=== PATIENT | male | born 1965 | race African-American/Black ===

== ENCOUNTER 2017-07-28 09:34 | Emergency (ER) | payer SELFPAY ==
[~2017-07-28] VITALS: Ht 180.3 cm; Wt 100.0 kg
[2017-07-28] MEDS ORDERED: LASIX 40MG TABL40 MG PO (09:53)
[2017-07-28] MEDS ORDERED: ALDACTONE50 MG PO (09:54)
[2017-07-28] MEDS ORDERED: ALTACE 2.5MG T2.5 MG PO (09:54)
[2017-07-28 10:30] LABS: COLLECTION METHOD CLEAN CATCH
[2017-07-28 10:35] LABS: BASO % 0.3 % (0.0-2.0); EOS # 0.1 (0.0-0.7); EOS % 0.5 % (0-4.0); GRAN # 6.7 (1.4-6.5); GRAN % 69.3 % (42.2-75.2); HEMOGLOBIN 12.1 g/dl (13.5-18.0); LYMPH % 20.7 % (20.0-51.0); MEAN CELL VOLUME 89 fl (80.0-100.0); MEAN CORPUSCULAR HEMOGLOBIN 29 pg (27.0-31.0); MEAN CORPUSCULAR HGB CONC 33 g/dl (33.0-37.0); MONO # 0.9 (0.1-0.6); MONO % 8.8 % (1.7-9.3); PLATELET COUNT 225 K/mm3 (130-400); RED BLOOD COUNT 4.18 M/mm3 (4.20-5.60)
[2017-07-28 10:47] LABS: MUCOUS Present /lpf; PH 5 (5-8); SQUAMOUS EPITHELIAL 0-2 /hpf; URINE APPEARANCE Hazy; URINE BACTERIA None Seen /hpf; URINE BILIRUBIN Negative (NEGATIVE); URINE BLOOD Negative (NEGATIVE); URINE COLOR Yellow; URINE GLUCOSE Negative (NEGATIVE); URINE KETONE Trace (NEGATIVE); URINE LEUKOCYTE ESTERASE Negative (NEGATIVE); URINE NITRATE Negative (NEGATIVE); URINE PROTEIN(semi-quant) Negative (NEGATIVE)
[2017-07-28 10:47] LABS: ALBUMIN 4.2 gm/dL (3.5-5.0); BILIRUBIN,TOTAL 0.6 mg/dL (0.0-1.0); C-REACTIVE PROTEIN 1.7 mg/dL (0.0-0.9); CALCIUM 8.9 mg/dL (8.4-10.2); CREATININE, serum 1.04 mg/dL (0.66-1.25); POTASSIUM 3.7 mmol/L (3.4-5.0); TOTAL PROTEIN 8.1 gm/dL (6.4-8.2)
[2017-07-28 11:04] LABS: TROPONIN-I 0.052 ng/mL (0.000-0.034)
[2017-07-28 11:10] LABS: ERYTHROCYTE SEDIMENTATION RATE 13 mm/hr (0-30)
[2017-07-28 11:18] LABS: INR 1.2 (0.8-3.0); PROTHROMBIN TIME 13.5 SECONDS (9.7-12.8)
[2017-07-28 11:21] LABS: PARTIAL THROMBOPLASTIN TIME 33.2 SECONDS (26.0-37.0)
[2017-07-28] MEDS ORDERED: TOPROL XL 25MG25 MG PO (13:11)
[2017-07-28] MEDS ORDERED: PLAVIX 75MG TAB75 MG PO (13:11)
[2017-07-28 14:16] VITALS: BP 133/99; PULSE 114; TEMP 98
[2017-07-28] MEDS ORDERED: 00186-0370-20 IH (17:00)
[2017-07-28] MEDS ORDERED: [UNRECOGNIZED DRUG - OTHER] PO (17:01)
== END 2017-07-28 13:15 | disposition home or self-care (01) ==
LOC: COL.ER 09:34
PROVIDERS: Emergency Medicine
DX: M54.6 Pain in thoracic spine (principal); F17.210 Nicotine dependence, cigarettes, uncomplicated; R79.89 Other specified abnormal findings of blood chemistry; I10 Essential (primary) hypertension

== ENCOUNTER 2017-07-28 15:25 | Inpatient (IN) | payer OTHER ==
[~2017-07-28] VITALS: Ht 180.3 cm; Wt 99.5 kg
[~2017-07-28 15:25] MED LIST: ALDACTONE50 MG PO; ALTACE 2.5MG T2.5 MG PO; LASIX 40MG TABL40 MG PO; PLAVIX 75MG TAB75 MG PO; TOPROL XL 25MG25 MG PO
[2017-07-28 15:59] LABS: BASO % 0.4 % (0.0-2.0); EOS # 0.1 (0.0-0.7); GRAN # 6.9 (1.4-6.5); GRAN % 62.7 % (42.2-75.2); LYMPH # 2.7 (1.2-3.4); LYMPH % 24.2 % (20.0-51.0); MEAN CELL VOLUME 88 fl (80.0-100.0); MEAN CORPUSCULAR HEMOGLOBIN 29 pg (27.0-31.0); MEAN CORPUSCULAR HGB CONC 33 g/dl (33.0-37.0); MEAN PLATELET VOLUME 9.9 fl (7.4-10.4); MONO # 1.2 (0.1-0.6); MONO % 11.3 % (1.7-9.3); PLATELET COUNT 235 K/mm3 (130-400); RED BLOOD COUNT 4.14 M/mm3 (4.20-5.60)
[2017-07-28 16:08] LABS: HEMATOCRIT 36.5 % (42.0-52.0)
[2017-07-28 16:42] LABS: COLLECTION METHOD CLEAN CATCH
[2017-07-28 16:48] LABS: MUCOUS Present /lpf; PH 5 (5-8); URINE APPEARANCE Clear; URINE BACTERIA None Seen /hpf; URINE BILIRUBIN Negative (NEGATIVE); URINE BLOOD Negative (NEGATIVE); URINE COLOR Amber; URINE GLUCOSE Negative (NEGATIVE); URINE KETONE 1+ (NEGATIVE); URINE LEUKOCYTE ESTERASE Trace (NEGATIVE); URINE NITRATE Negative (NEGATIVE); URINE PROTEIN(semi-quant) 1+ (NEGATIVE); URINE RBC 20-50 /hpf
[2017-07-28] MEDS ORDERED: 00186-0370-20 IH (17:00)
[2017-07-28] MEDS ORDERED: [UNRECOGNIZED DRUG - OTHER] PO (17:01)
[2017-07-28 17:24] LABS: TRICYCLIC ANTIDEPRESS URINE NEGATIVE
[2017-07-28 18:11] VITALS: BP 111/76; PULSE 88; TEMP 98.3
[2017-07-28 19:37] VITALS: BP 111/72; PULSE 85; TEMP 98.8
[2017-07-29] VITALS (12 sets, daily range): BP systolic 113–141; BP diastolic 72–94; PULSE 81–109; TEMP 98.1–99.3
[2017-07-29 06:52] LABS: BASO % 0.4 % (0.0-2.0); EOS # 0.2 (0.0-0.7); EOS % 2.4 % (0-4.0); GRAN # 4.1 (1.4-6.5); GRAN % 57.8 % (42.2-75.2); LYMPH # 2.1 (1.2-3.4); LYMPH % 28.8 % (20.0-51.0); MEAN CELL VOLUME 88 fl (80.0-100.0); MEAN CORPUSCULAR HGB CONC 33 g/dl (33.0-37.0); MEAN PLATELET VOLUME 10.6 fl (7.4-10.4); MONO # 0.8 (0.1-0.6); MONO % 10.5 % (1.7-9.3); PLATELET COUNT 211 K/mm3 (130-400); RED BLOOD COUNT 3.85 M/mm3 (4.20-5.60); REDCELL DISTRIBUTION WIDTH-CV 15.1 % (11.5-14.5)
[2017-07-29 07:02] LABS: CALCIUM 8.5 mg/dL (8.4-10.2); CREATININE, serum 0.96 mg/dL (0.66-1.25); HEMOGLOBIN 11.2 g/dl (13.5-18.0); MEAN CORPUSCULAR HEMOGLOBIN 29 pg (27.0-31.0); POTASSIUM 3.8 mmol/L (3.4-5.0)
[2017-07-29 07:06] LABS: MAGNESIUM 2.1 mg/dL (1.6-2.3); PHOSPHOROUS 2.5 mg/dL (2.5-4.5)
[2017-07-29 07:23] LABS: TROPONIN-I 0.039 ng/mL (0.000-0.034)
[2017-07-30] VITALS (14 sets, daily range): BP systolic 108–136; BP diastolic 70–96; PULSE 57–96; TEMP 98–98.6
[2017-07-30 06:04] LABS: MEAN CELL VOLUME 88 fl (80.0-100.0); MEAN CORPUSCULAR HGB CONC 33 g/dl (33.0-37.0); MEAN PLATELET VOLUME 9.6 fl (7.4-10.4); PLATELET COUNT 220 K/mm3 (130-400); RED BLOOD COUNT 3.96 M/mm3 (4.20-5.60)
[2017-07-30 06:05] LABS: HEMATOCRIT 34.8 % (42.0-52.0); HEMOGLOBIN 11.6 g/dl (13.5-18.0); MEAN CORPUSCULAR HEMOGLOBIN 29 pg (27.0-31.0)
[2017-07-30 06:08] LABS: INR 1.1 (0.8-3.0); PROTHROMBIN TIME 12.9 SECONDS (9.7-12.8)
[2017-07-30 06:11] LABS: PARTIAL THROMBOPLASTIN TIME 32.3 SECONDS (26.0-37.0)
[2017-07-30 06:23] LABS: CALCIUM 8.4 mg/dL (8.4-10.2); CREATININE, serum 0.94 mg/dL (0.66-1.25); POTASSIUM 3.9 mmol/L (3.4-5.0)
[2017-07-30] MEDS ORDERED: TOPROL XL 25MG25 MG PO (15:40)
[2017-07-30] MEDS ORDERED: SEROQUEL 2525 MG/TAB PO (15:41)
== END 2017-07-30 16:26 | disposition home or self-care (01) | DRG 281 ==
LOC: COL.ER 15:25 → MEDICAL 16:41
PROVIDERS: Emergency Medicine; Internal Medicine; Nurse Practitioner
PROC: B2111ZZ Fluoroscopy of Multiple Coronary Arteries using Low Osmolar Contrast (ICD-10-PCS; principal; 2017-07-30)
DX: I42.8 Other cardiomyopathies (principal); I21.A1 Myocardial infarction type 2; I50.20 Unspecified systolic (congestive) heart failure; F17.210 Nicotine dependence, cigarettes, uncomplicated; D64.9 Anemia, unspecified; J44.9 Chronic obstructive pulmonary disease, unspecified; F40.01 Agoraphobia with panic disorder; R94.39 Abnormal result of other cardiovascular function study; F16.10 Hallucinogen abuse, uncomplicated; F12.10 Cannabis abuse, uncomplicated; F11.10 Opioid abuse, uncomplicated; Z23 Encounter for immunization; F41.9 Anxiety disorder, unspecified
CPT/HCPCS: 99232-AI; 99239; A9502; C1760; C1894; G0378; J1644; J2250; J2270; J2704; J2785; Q9967

== ENCOUNTER 2017-08-02 17:15 | Emergency (ER) | payer OTHER ==
[~2017-08-02 17:15] MED LIST changes: +00186-0370-20 IH; +SEROQUEL 2525 MG/TAB PO; +[UNRECOGNIZED DRUG - OTHER] PO
[2017-08-02 17:27] VITALS: TEMP 98.5
[2017-08-02] MEDS ORDERED: PLAVIX 75MG TAB75 MG PO (18:00)
[2017-08-02] MEDS ORDERED: KLONOPIN 0.5MG0.5 MG PO (18:13)
[2017-08-02 18:21] LABS: BASO % 0.4 % (0.0-2.0); EOS # 0.2 (0.0-0.7); EOS % 2.2 % (0-4.0); GRAN # 3.9 (1.4-6.5); GRAN % 49.9 % (42.2-75.2); LYMPH % 38.6 % (20.0-51.0); MEAN CELL VOLUME 90 fl (80.0-100.0); MEAN CORPUSCULAR HGB CONC 32 g/dl (33.0-37.0); MEAN PLATELET VOLUME 9.9 fl (7.4-10.4); MONO # 0.7 (0.1-0.6); MONO % 8.8 % (1.7-9.3); PLATELET COUNT 249 K/mm3 (130-400); RED BLOOD COUNT 4.07 M/mm3 (4.20-5.60); REDCELL DISTRIBUTION WIDTH-CV 15.5 % (11.5-14.5)
[2017-08-02 18:22] LABS: ALBUMIN 3.8 gm/dL (3.5-5.0); BILIRUBIN,TOTAL 0.2 mg/dL (0.0-1.0); CALCIUM 8.5 mg/dL (8.4-10.2); CREATININE, serum 0.91 mg/dL (0.66-1.25); HEMATOCRIT 36.6 % (42.0-52.0); HEMOGLOBIN 11.8 g/dl (13.5-18.0); MEAN CORPUSCULAR HEMOGLOBIN 29 pg (27.0-31.0); POTASSIUM 3.9 mmol/L (3.4-5.0); TOTAL PROTEIN 7.7 gm/dL (6.4-8.2)
[2017-08-02 19:15] VITALS: BP 102/76; PULSE 83
== END 2017-08-02 19:15 | disposition home or self-care (01) ==
LOC: COL.ER 17:15
PROVIDERS: Emergency Medicine
DX: I42.9 Cardiomyopathy, unspecified (principal); I10 Essential (primary) hypertension; Z98.890 Other specified postprocedural states; Z79.02 Long term (current) use of antithrombotics/antiplatelets

== ENCOUNTER 2017-08-16 13:16 | Emergency (ER) | payer OTHER ==
[~2017-08-16] VITALS: Ht 180.3 cm; Wt 81.8 kg
[~2017-08-16 13:16] MED LIST changes: +KLONOPIN 0.5MG0.5 MG PO
[2017-08-16 13:29] VITALS: TEMP 98.3
[2017-08-16 15:38] LABS: BASO % 0.3 % (0.0-2.0); EOS # 0.1 (0.0-0.7); EOS % 0.8 % (0-4.0); GRAN # 3.9 (1.4-6.5); GRAN % 54.3 % (42.2-75.2); HEMOGLOBIN 12.7 g/dl (13.5-18.0); LYMPH # 2.6 (1.2-3.4); LYMPH % 35.7 % (20.0-51.0); MEAN CELL VOLUME 88 fl (80.0-100.0); MEAN CORPUSCULAR HEMOGLOBIN 29 pg (27.0-31.0); MEAN CORPUSCULAR HGB CONC 33 g/dl (33.0-37.0); MEAN PLATELET VOLUME 9.7 fl (7.4-10.4); MONO # 0.6 (0.1-0.6); MONO % 8.6 % (1.7-9.3); PLATELET COUNT 219 K/mm3 (130-400); RED BLOOD COUNT 4.41 M/mm3 (4.20-5.60); REDCELL DISTRIBUTION WIDTH-CV 15.9 % (11.5-14.5)
[2017-08-16 15:49] LABS: BILIRUBIN,TOTAL 0.4 mg/dL (0.0-1.0); C-REACTIVE PROTEIN 1.4 mg/dL (0.0-0.9); CREATININE, serum 0.91 mg/dL (0.66-1.25); TOTAL PROTEIN 8.6 gm/dL (6.4-8.2)
[2017-08-16 15:53] LABS: COLLECTION METHOD CLEAN CATCH
[2017-08-16 15:57] LABS: TROPONIN-I 0.019 ng/mL (0.000-0.034)
[2017-08-16 16:04] LABS: MUCOUS Present /lpf; PH 5 (5-8); SQUAMOUS EPITHELIAL 0-2 /hpf; URINE APPEARANCE Cloudy; URINE BACTERIA None Seen /hpf; URINE BILIRUBIN Negative (NEGATIVE); URINE BLOOD Negative (NEGATIVE); URINE COLOR Amber; URINE GLUCOSE Negative (NEGATIVE); URINE KETONE 2+ (NEGATIVE); URINE LEUKOCYTE ESTERASE 1+ (NEGATIVE); URINE NITRATE Negative (NEGATIVE); URINE PROTEIN(semi-quant) 1+ (NEGATIVE)
[2017-08-16] MEDS ORDERED: ANTIVERT 25MG25 MG PO (17:05)
[2017-08-16] MEDS ORDERED: VALIUM 5MG T5 MG/TAB PO (17:05)
[2017-08-16] MEDS ORDERED: PRILOTC PO (17:05)
[2017-08-16] MEDS ORDERED: ZOFRAN 4MG T4 MG/TAB PO (17:05)
[2017-08-16] MEDS ORDERED: CEPHALEXIN500 M1 PO (17:15)
[2017-08-16 17:23] VITALS: BP 104/90; PULSE 90
[2017-08-17] MEDS ORDERED: ANTIVERT 25MG25 MG PO (14:09)
[2017-08-17] MEDS ORDERED: VALIUM 5MG T5 MG/TAB PO (14:09)
[2017-08-17] MEDS ORDERED: PRILOSEC 20MG20 MG PO (14:10)
[2017-08-17] MEDS ORDERED: ZOFRAN 4MG T4 MG/TAB PO (14:10)
[2017-08-17] MEDS ORDERED: PLAVIX 75MG TAB75 MG PO (14:11)
[2017-08-17] MEDS ORDERED: TOPROL XL 25MG25 MG PO (14:12)
[2017-08-17] MEDS ORDERED: SEROQUEL 2525 MG/TAB PO (14:12)
[2017-08-17] MEDS ORDERED: MIRALAX 255 GM255 GM PO (15:20)
[2017-08-17] MEDS ORDERED: STOOL SOFTENER100 M2 PO (15:20)
== END 2017-08-16 17:34 | disposition home or self-care (01) ==
LOC: COL.ER 13:16
PROVIDERS: Emergency Medicine
DX: H81.10 Benign paroxysmal vertigo, unspecified ear (principal); F41.9 Anxiety disorder, unspecified; R10.13 Epigastric pain; I50.9 Heart failure, unspecified; I10 Essential (primary) hypertension; F17.210 Nicotine dependence, cigarettes, uncomplicated; F12.90 Cannabis use, unspecified, uncomplicated; Z79.02 Long term (current) use of antithrombotics/antiplatelets
CPT/HCPCS: J2405

== ENCOUNTER 2017-08-17 14:03 | Emergency (ER) | payer OTHER ==
[~2017-08-17] VITALS: Ht 180.3 cm; Wt 81.8 kg
[~2017-08-17 14:03] MED LIST changes: +ANTIVERT 25MG25 MG PO; +CEPHALEXIN500 M1 PO; +PRILOTC PO; +VALIUM 5MG T5 MG/TAB PO; +ZOFRAN 4MG T4 MG/TAB PO
[2017-08-17] MEDS ORDERED: VALIUM 5MG T5 MG/TAB PO (14:09)
[2017-08-17] MEDS ORDERED: ANTIVERT 25MG25 MG PO (14:09)
[2017-08-17] MEDS ORDERED: PRILOSEC 20MG20 MG PO (14:10)
[2017-08-17] MEDS ORDERED: ZOFRAN 4MG T4 MG/TAB PO (14:10)
[2017-08-17] MEDS ORDERED: PLAVIX 75MG TAB75 MG PO (14:11)
[2017-08-17] MEDS ORDERED: TOPROL XL 25MG25 MG PO (14:12)
[2017-08-17] MEDS ORDERED: SEROQUEL 2525 MG/TAB PO (14:12)
[2017-08-17 14:13] VITALS: BP 132/77; TEMP 98.3
[2017-08-17] MEDS ORDERED: MIRALAX 255 GM255 GM PO (15:20)
[2017-08-17] MEDS ORDERED: STOOL SOFTENER100 M2 PO (15:20)
[2017-08-17 15:41] VITALS: PULSE 88
== END 2017-08-17 15:41 | disposition home or self-care (01) ==
LOC: COL.ER 14:03
DX: K59.00 Constipation, unspecified (principal); I10 Essential (primary) hypertension; I50.9 Heart failure, unspecified; F41.9 Anxiety disorder, unspecified; F17.210 Nicotine dependence, cigarettes, uncomplicated; F12.90 Cannabis use, unspecified, uncomplicated; Z79.02 Long term (current) use of antithrombotics/antiplatelets

== ENCOUNTER 2017-08-18 11:17 | Emergency (ER) | payer OTHER ==
[~2017-08-18] VITALS: Ht 180.3 cm; Wt 81.8 kg
[~2017-08-18 11:17] MED LIST changes: +MIRALAX 255 GM255 GM PO; +PRILOSEC 20MG20 MG PO; +STOOL SOFTENER100 M2 PO
[2017-08-18 11:26] VITALS: TEMP 98.7
[2017-08-18 12:07] LABS: BASO % 0.4 % (0.0-2.0); EOS # 0.1 (0.0-0.7); EOS % 1.6 % (0-4.0); GRAN # 2.8 (1.4-6.5); GRAN % 56.1 % (42.2-75.2); LYMPH # 1.7 (1.2-3.4); MEAN CELL VOLUME 89 fl (80.0-100.0); MEAN CORPUSCULAR HEMOGLOBIN 29 pg (27.0-31.0); MEAN CORPUSCULAR HGB CONC 33 g/dl (33.0-37.0); MEAN PLATELET VOLUME 9.1 fl (7.4-10.4); MONO # 0.4 (0.1-0.6); MONO % 7.7 % (1.7-9.3); PLATELET COUNT 198 K/mm3 (130-400); RED BLOOD COUNT 4.12 M/mm3 (4.20-5.60)
[2017-08-18 12:08] LABS: HEMATOCRIT 36.7 % (42.0-52.0)
[2017-08-18 12:21] LABS: ALBUMIN 3.9 gm/dL (3.5-5.0); BILIRUBIN,TOTAL 0.3 mg/dL (0.0-1.0); CALCIUM 8.8 mg/dL (8.4-10.2); CREATININE, serum 0.94 mg/dL (0.66-1.25); POTASSIUM 3.7 mmol/L (3.4-5.0); TOTAL PROTEIN 7.8 gm/dL (6.4-8.2)
[2017-08-18 12:32] LABS: TROPONIN-I 0.013 ng/mL (0.000-0.034)
[2017-08-18 12:57] VITALS: BP 120/83; PULSE 85
[2017-08-19] MEDS ORDERED: CEPHALEXIN500 M1 PO (16:12)
[2017-08-19] MEDS ORDERED: COLACE 100100 MG/CAP PO (16:12)
== END 2017-08-18 12:58 | disposition home or self-care (01) ==
LOC: COL.ER 11:17
PROVIDERS: Emergency Medicine
DX: F41.9 Anxiety disorder, unspecified (principal); R07.89 Other chest pain; I10 Essential (primary) hypertension; I42.8 Other cardiomyopathies; F17.210 Nicotine dependence, cigarettes, uncomplicated; Z98.890 Other specified postprocedural states; Z79.02 Long term (current) use of antithrombotics/antiplatelets

== ENCOUNTER 2017-08-19 14:58 | Emergency (ER) | payer OTHER ==
[~2017-08-19] VITALS: Ht 180.3 cm; Wt 81.8 kg
[2017-08-19] MEDS ORDERED: CEPHALEXIN500 M1 PO (16:12)
[2017-08-19] MEDS ORDERED: COLACE 100100 MG/CAP PO (16:12)
[2017-08-19 16:14] VITALS: TEMP 98.9
[2017-08-19 16:47] LABS: BASO % 0.3 % (0.0-2.0); EOS # 0.1 (0.0-0.7); EOS % 1.7 % (0-4.0); GRAN % 52.5 % (42.2-75.2); HEMOGLOBIN 12.7 g/dl (13.5-18.0); LYMPH # 2.7 (1.2-3.4); LYMPH % 35.3 % (20.0-51.0); MEAN CELL VOLUME 89 fl (80.0-100.0); MEAN CORPUSCULAR HEMOGLOBIN 29 pg (27.0-31.0); MEAN CORPUSCULAR HGB CONC 33 g/dl (33.0-37.0); MEAN PLATELET VOLUME 9.5 fl (7.4-10.4); MONO # 0.8 (0.1-0.6); MONO % 9.9 % (1.7-9.3); PLATELET COUNT 223 K/mm3 (130-400); REDCELL DISTRIBUTION WIDTH-CV 16.1 % (11.5-14.5)
[2017-08-19 16:56] LABS: ALBUMIN 4.1 gm/dL (3.5-5.0); BILIRUBIN,TOTAL 0.5 mg/dL (0.0-1.0); C-REACTIVE PROTEIN 1.2 mg/dL (0.0-0.9); CREATININE, serum 1.03 mg/dL (0.66-1.25); POTASSIUM 3.7 mmol/L (3.4-5.0); TOTAL PROTEIN 8.5 gm/dL (6.4-8.2)
[2017-08-19 16:57] LABS: INR 1.2 (0.8-3.0); PROTHROMBIN TIME 13.8 SECONDS (9.7-12.8)
[2017-08-19 17:05] LABS: TROPONIN-I 0.02 ng/mL (0.000-0.034)
[2017-08-19 17:45] VITALS: BP 133/79; PULSE 87
== END 2017-08-19 17:45 | disposition home or self-care (01) ==
LOC: COL.ER 14:58
PROVIDERS: Emergency Medicine
DX: F41.9 Anxiety disorder, unspecified (principal); R07.89 Other chest pain; I10 Essential (primary) hypertension; I42.9 Cardiomyopathy, unspecified; I25.2 Old myocardial infarction; F17.210 Nicotine dependence, cigarettes, uncomplicated; Z98.890 Other specified postprocedural states; Z79.02 Long term (current) use of antithrombotics/antiplatelets

== ENCOUNTER 2017-08-24 07:18 | Emergency (ER) | payer SELFPAY ==
[~2017-08-24] VITALS: Ht 180.3 cm; Wt 81.8 kg
[~2017-08-24 07:18] MED LIST changes: +COLACE 100100 MG/CAP PO
[2017-08-24 07:29] VITALS: BP 151/78; TEMP 98.9
[2017-08-24 07:56] LABS: BASO % 0.3 % (0.0-2.0); EOS # 0.1 (0.0-0.7); EOS % 2.2 % (0-4.0); GRAN # 3.3 (1.4-6.5); GRAN % 50.7 % (42.2-75.2); HEMATOCRIT 37.8 % (42.0-52.0); HEMOGLOBIN 12.4 g/dl (13.5-18.0); LYMPH # 2.4 (1.2-3.4); LYMPH % 37.1 % (20.0-51.0); MEAN CELL VOLUME 89 fl (80.0-100.0); MEAN CORPUSCULAR HEMOGLOBIN 29 pg (27.0-31.0); MEAN CORPUSCULAR HGB CONC 33 g/dl (33.0-37.0); MEAN PLATELET VOLUME 9.8 fl (7.4-10.4); MONO # 0.6 (0.1-0.6); MONO % 9.5 % (1.7-9.3); PLATELET COUNT 230 K/mm3 (130-400); RED BLOOD COUNT 4.27 M/mm3 (4.20-5.60); REDCELL DISTRIBUTION WIDTH-CV 16.1 % (11.5-14.5)
[2017-08-24 08:04] LABS: ALBUMIN 4.1 gm/dL (3.5-5.0); BILIRUBIN,TOTAL 0.3 mg/dL (0.0-1.0); CALCIUM 8.8 mg/dL (8.4-10.2); CREATININE, serum 1.05 mg/dL (0.66-1.25); POTASSIUM 3.7 mmol/L (3.4-5.0); TOTAL PROTEIN 8.3 gm/dL (6.4-8.2)
[2017-08-24 09:06] VITALS: PULSE 88
[2017-08-24] MEDS ORDERED: COLACE 100100 MG/CAP PO (17:31)
== END 2017-08-24 09:07 | disposition home or self-care (01) ==
LOC: COL.ER 07:18
PROVIDERS: Physician Assistant
DX: R19.7 Diarrhea, unspecified (principal); I10 Essential (primary) hypertension; F41.9 Anxiety disorder, unspecified; I42.9 Cardiomyopathy, unspecified; Z79.02 Long term (current) use of antithrombotics/antiplatelets; Z88.6 Allergy status to analgesic agent

== ENCOUNTER 2017-08-24 15:39 | Emergency (ER) | payer SELFPAY ==
[~2017-08-24] VITALS: Ht 152.4 cm; Wt 81.8 kg
[2017-08-24 15:50] VITALS: TEMP 98.4
[2017-08-24 17:19] LABS: BASO % 0.4 % (0.0-2.0); EOS # 0.1 (0.0-0.7); EOS % 1.5 % (0-4.0); GRAN # 3.9 (1.4-6.5); GRAN % 58.2 % (42.2-75.2); HEMATOCRIT 37.7 % (42.0-52.0); HEMOGLOBIN 12.4 g/dl (13.5-18.0); LYMPH # 2.2 (1.2-3.4); LYMPH % 31.7 % (20.0-51.0); MEAN CELL VOLUME 88 fl (80.0-100.0); MEAN CORPUSCULAR HEMOGLOBIN 29 pg (27.0-31.0); MEAN CORPUSCULAR HGB CONC 33 g/dl (33.0-37.0); MEAN PLATELET VOLUME 9.5 fl (7.4-10.4); MONO # 0.6 (0.1-0.6); MONO % 8.1 % (1.7-9.3); PLATELET COUNT 225 K/mm3 (130-400)
[2017-08-24] MEDS ORDERED: COLACE 100100 MG/CAP PO (17:31)
[2017-08-24 17:32] LABS: BILIRUBIN,TOTAL 0.4 mg/dL (0.0-1.0); C-REACTIVE PROTEIN 0.7 mg/dL (0.0-0.9); CALCIUM 9.1 mg/dL (8.4-10.2); CREATININE, serum 0.96 mg/dL (0.66-1.25); POTASSIUM 3.7 mmol/L (3.4-5.0); TOTAL PROTEIN 8.3 gm/dL (6.4-8.2)
[2017-08-24 18:50] VITALS: BP 151/90; PULSE 99
[2017-08-24 18:56] LABS: COLLECTION METHOD CLEAN CATCH
[2017-08-24 19:01] LABS: MUCOUS Present /lpf; PH 6 (5-8); URINE APPEARANCE Clear; URINE BACTERIA None Seen /hpf; URINE BILIRUBIN Negative (NEGATIVE); URINE BLOOD Negative (NEGATIVE); URINE COLOR Yellow; URINE GLUCOSE Negative (NEGATIVE); URINE KETONE 1+ (NEGATIVE); URINE LEUKOCYTE ESTERASE Negative (NEGATIVE); URINE NITRATE Negative (NEGATIVE); URINE PROTEIN(semi-quant) Negative (NEGATIVE); URINE UROBILINOGEN Negative (NEGATIVE)
== END 2017-08-24 18:52 | disposition home or self-care (01) ==
LOC: COL.ER 15:39
PROVIDERS: Emergency Medicine
DX: R19.7 Diarrhea, unspecified (principal); I42.9 Cardiomyopathy, unspecified; F41.9 Anxiety disorder, unspecified; Z98.890 Other specified postprocedural states; Z79.02 Long term (current) use of antithrombotics/antiplatelets
CPT/HCPCS: Q9967

== ENCOUNTER 2017-08-26 16:24 | Emergency (ER) | payer OTHER ==
[~2017-08-26] VITALS: Ht 180.3 cm; Wt 81.8 kg
[2017-08-26 16:30] VITALS: TEMP 97.8
[2017-08-26 17:11] LABS: BASO % 0.6 % (0.0-2.0); EOS # 0.1 (0.0-0.7); GRAN # 2.6 (1.4-6.5); GRAN % 39.9 % (42.2-75.2); HEMATOCRIT 37.8 % (42.0-52.0); HEMOGLOBIN 12.5 g/dl (13.5-18.0); LYMPH # 3.1 (1.2-3.4); LYMPH % 46.5 % (20.0-51.0); MEAN CELL VOLUME 88 fl (80.0-100.0); MEAN CORPUSCULAR HEMOGLOBIN 29 pg (27.0-31.0); MEAN CORPUSCULAR HGB CONC 33 g/dl (33.0-37.0); MEAN PLATELET VOLUME 10.2 fl (7.4-10.4); MONO # 0.7 (0.1-0.6); MONO % 10.8 % (1.7-9.3); PLATELET COUNT 220 K/mm3 (130-400); RED BLOOD COUNT 4.28 M/mm3 (4.20-5.60); REDCELL DISTRIBUTION WIDTH-CV 16.1 % (11.5-14.5)
[2017-08-26 17:22] LABS: ALBUMIN 4.2 gm/dL (3.5-5.0); BILIRUBIN,TOTAL 0.3 mg/dL (0.0-1.0); C-REACTIVE PROTEIN 0.8 mg/dL (0.0-0.9); CALCIUM 9.1 mg/dL (8.4-10.2); CREATININE, serum 1.09 mg/dL (0.66-1.25); POTASSIUM 3.8 mmol/L (3.4-5.0); TOTAL PROTEIN 8.5 gm/dL (6.4-8.2)
[2017-08-26 17:39] LABS: COLLECTION METHOD CLEAN CATCH
[2017-08-26 17:46] LABS: MUCOUS Present /lpf; PH 5 (5-8); URINE APPEARANCE Clear; URINE BACTERIA None Seen /hpf; URINE BILIRUBIN Negative (NEGATIVE); URINE BLOOD Negative (NEGATIVE); URINE COLOR Amber; URINE GLUCOSE Negative (NEGATIVE); URINE KETONE Trace (NEGATIVE); URINE LEUKOCYTE ESTERASE Negative (NEGATIVE); URINE NITRATE Negative (NEGATIVE); URINE PROTEIN(semi-quant) 1+ (NEGATIVE)
[2017-08-26 18:18] VITALS: BP 135/94; PULSE 81
== END 2017-08-26 18:20 | disposition home or self-care (01) ==
LOC: COL.ER 16:24
PROVIDERS: Family Medicine
DX: G89.29 Other chronic pain (principal); R10.32 Left lower quadrant pain; I42.9 Cardiomyopathy, unspecified; F41.9 Anxiety disorder, unspecified; Z87.891 Personal history of nicotine dependence; Z79.02 Long term (current) use of antithrombotics/antiplatelets
CPT/HCPCS: J2405; J7030

== ENCOUNTER 2017-08-28 16:45 | Emergency (ER) | payer SELFPAY ==
[~2017-08-28] VITALS: Ht 180.3 cm; Wt 81.8 kg
[2017-08-28 16:48] VITALS: TEMP 99.4
[2017-08-28 18:24] VITALS: BP 133/74; PULSE 84
[2017-08-28] MEDS ORDERED: ZYPREXA 5MG5 MG PO (18:46)
[2017-08-28] MEDS ORDERED: ATARAX 25MG25 MG/TAB PO (18:46)
== END 2017-08-28 18:58 | disposition home or self-care (01) ==
LOC: COL.ER 16:45
DX: F41.9 Anxiety disorder, unspecified (principal); I25.10 Atherosclerotic heart disease of native coronary artery without angina pectoris; I50.9 Heart failure, unspecified; F12.90 Cannabis use, unspecified, uncomplicated; Z95.5 Presence of coronary angioplasty implant and graft; Z79.02 Long term (current) use of antithrombotics/antiplatelets